=== PATIENT | male | born 1985 | race Native Hawaiian/Other Pacific Islander ===

== ENCOUNTER 2016-12-13 20:06 | Emergency (ER) | payer OTHER ==
[~2016-12-13] VITALS: Ht 177.8 cm; Wt 124.7 kg
[~2016-12-13 20:06] MED LIST: ACET-689 PO; ACID CONTROL150 MG PO; ALLO100T22 PO; AZEL137S; DEMEROL50 MG PO; DEXL60CA4 PO; FLUT0.05 NAS; HYDR50CA21 PO; LIPITOR20 MG PO; MEDROL DOSEPAK4 MG OR; MEPE50TA PO; METOPROLOL25 M1 PO; NAPR500T40 PO; NEXIUM40 M1 PO; PREDNISONE10 MG PO; PROM25TA52 PO; ZOLP10TA2 PO
[2016-12-13 21:19] LABS: PLATELET COUNT 286 K/uL (142-355)
[2016-12-13 21:37] LABS: POTASSIUM 3.7 mmol/L (3.6-5.2); SODIUM 136 mmol/L (136-145)
[2016-12-13 23:53] VITALS: BP 128/73; TEMP 98.2
== END 2016-12-13 23:56 | disposition home or self-care (01) ==
LOC: ED 20:06
DX: N23 Unspecified renal colic (principal); N20.0 Calculus of kidney; K76.0 Fatty (change of) liver, not elsewhere classified; E66.09 Other obesity due to excess calories
CPT/HCPCS: 36415; 80053; 85027; 96361; 96374; 96375; 99284; J1885; J2405; Q9963

== ENCOUNTER 2017-06-12 07:54 | Emergency (ER) | payer OTHER ==
[~2017-06-12] VITALS: Ht 180.3 cm; Wt 129.3 kg
[2017-06-12 08:44] LABS: PLATELET COUNT 284 K/uL (142-355)
[2017-06-12 08:51] LABS: POTASSIUM 4.2 mmol/L (3.6-5.2)
[2017-06-12 09:24] VITALS: BP 120/74; TEMP 98.4
== END 2017-06-12 09:33 | disposition home or self-care (01) ==
LOC: ED 07:54
PROVIDERS: Family Medicine
DX: B34.9 Viral infection, unspecified (principal); R94.5 Abnormal results of liver function studies
CPT/HCPCS: 36415; 80053; 85027; 87804; 96375; 99283; J2405

== ENCOUNTER 2017-07-07 06:24 | Outpatient (CLI) | payer OTHER ==
[2017-07-07 06:41] LABS: PLATELET COUNT 316 K/uL (142-355)
[2017-07-07 06:49] LABS: POTASSIUM 3.8 mmol/L (3.6-5.2)
== END 2017-07-07 19:45 | disposition home or self-care (01) ==
LOC: LABW 06:24
PROVIDERS: Family Medicine
DX: E66.8 Other obesity (principal); M10.9 Gout, unspecified; R79.89 Other specified abnormal findings of blood chemistry
CPT/HCPCS: 36415; 80053; 80061; 83036; 84550; 85027

== ENCOUNTER 2017-07-24 08:28 | Outpatient (CLI) | payer OTHER | END 2017-07-24 21:20 | disposition home or self-care (01) | LOC: US 08:28 | DX: R74.8 Abnormal levels of other serum enzymes (principal) ==

== ENCOUNTER 2017-08-26 15:26 | Outpatient (CLI) | payer OTHER | END 2017-08-26 20:33 | disposition home or self-care (01) | LOC: RAD 15:26 | DX: G56.03 Carpal tunnel syndrome, bilateral upper limbs (principal) ==

== ENCOUNTER 2017-10-08 15:51 | Outpatient (CLI) | payer OTHER | END 2017-10-08 19:13 | disposition home or self-care (01) | LOC: RESP 15:51 | DX: R20.8 Other disturbances of skin sensation (principal) | CPT/HCPCS: 95885; 95911 ==

== ENCOUNTER 2017-10-14 09:48 | Outpatient (CLI) | payer OTHER | END 2017-10-14 23:18 | disposition home or self-care (01) | LOC: RAD 09:48 | DX: J40 Bronchitis, not specified as acute or chronic (principal) ==

== ENCOUNTER 2018-06-14 12:28 | Outpatient (CLI) | payer OTHER | END 2018-06-14 19:17 | disposition home or self-care (01) | LOC: RAD 12:28 | DX: M25.572 Pain in left ankle and joints of left foot (principal) | CPT/HCPCS: 36415; 84550 ==

== ENCOUNTER 2019-02-03 17:43 | Emergency (ER) | payer OTHER ==
[~2019-02-03] VITALS: Ht 180.3 cm; Wt 138.3 kg
[2019-02-03 17:47] VITALS: BP 138/86; TEMP 99.7
[2019-02-03] MEDS ORDERED: OMEP20CA PO (17:52)
== END 2019-02-03 18:21 | disposition home or self-care (01) ==
LOC: ED 17:43
DX: S05.01XA Injury of conjunctiva and corneal abrasion without foreign body, right eye, initial encounter (principal)
CPT/HCPCS: 99283

== ENCOUNTER 2019-05-19 11:50 | Emergency (ER) | payer OTHER ==
[~2019-05-19] VITALS: Ht 180.3 cm; Wt 136.1 kg
[~2019-05-19 11:50] MED LIST changes: +OMEP20CA PO
[2019-05-19 12:01] VITALS: TEMP 97.3
[2019-05-19 12:55] LABS: PLATELET COUNT 297 K/uL (142-355)
[2019-05-19 13:00] LABS: POTASSIUM 3.5 mmol/L (3.6-5.2)
[2019-05-19 15:50] VITALS: BP 132/89
== END 2019-05-19 15:50 | disposition home or self-care (01) ==
LOC: ED 11:50
PROVIDERS: Hospitalist
DX: K52.89 Other specified noninfective gastroenteritis and colitis (principal); R11.2 Nausea with vomiting, unspecified; R19.7 Diarrhea, unspecified
CPT/HCPCS: 36415; 80053; 82150; 83690; 85027; 87040; 96360; 96365; 96375; 99284; J1956; J2405

== ENCOUNTER 2020-02-21 09:02 | Outpatient (CLI) | payer OTHER ==
[2020-02-21 09:49] LABS: PLATELET COUNT 298 K/uL (142-355)
[2020-02-21 10:08] LABS: SODIUM 136 mmol/L (136-145)
== END 2020-02-22 00:24 | disposition home or self-care (01) ==
LOC: RAD 09:02
PROVIDERS: Family Medicine
DX: R61 Generalized hyperhidrosis (principal); R06.02 Shortness of breath; R11.2 Nausea with vomiting, unspecified; R73.03 Prediabetes; R74.8 Abnormal levels of other serum enzymes; Z83.3 Family history of diabetes mellitus
CPT/HCPCS: 36415; 80053; 81000; 82550; 83036; 84439; 84443; 84484; 85027; 85610; 93005

== ENCOUNTER 2020-12-11 11:25 | Outpatient (CLI) | payer OTHER | END 2020-12-11 20:37 | disposition home or self-care (01) | LOC: LAB 11:25 | PROVIDERS: ATTEND Family Medicine | DX: R50.9 Fever, unspecified (principal); R19.7 Diarrhea, unspecified; R11.2 Nausea with vomiting, unspecified; R53.83 Other fatigue; Z11.52 Encounter for screening for COVID-19 | CPT/HCPCS: 87635; G2023; U0003 ==

== ENCOUNTER 2021-02-11 10:51 | Outpatient (CLI) | payer OTHER | END 2021-02-11 20:03 | disposition home or self-care (01) | LOC: LAB 10:51 | PROVIDERS: ATTEND Family Medicine | DX: Z20.822 Contact with and (suspected) exposure to COVID-19 (principal) | CPT/HCPCS: 87635; G2023; U0003 ==

== ENCOUNTER 2022-12-24 15:46 | Outpatient (CLI) | payer BC, OTHER ==
[2022-12-24 16:20] LABS: PLATELET COUNT 308 K/uL (142-355)
[2022-12-24 16:26] LABS: POTASSIUM 4.3 mmol/L (3.6-5.2)
== END 2022-12-24 19:52 | disposition home or self-care (01) ==
LOC: LABW 15:46
PROVIDERS: ATTEND Family Medicine
DX: R73.03 Prediabetes (principal); F32.A Depression, unspecified; E66.01 Morbid (severe) obesity due to excess calories; R35.1 Nocturia; M10.9 Gout, unspecified; E55.9 Vitamin D deficiency, unspecified; R68.82 Decreased libido; K21.9 Gastro-esophageal reflux disease without esophagitis
CPT/HCPCS: 36415; 80053; 80061; 81002; 82306; 83036; 83735; 84154; 84402; 84403; 84439; 84443; 84550; 85027